=== PATIENT | female | born 1995 | race Two or more races ===

== ENCOUNTER 2016-06-09 12:10 | Emergency (ER) | payer OTHER ==
[~2016-06-09] VITALS: Ht 165.1 cm; Wt 83.9 kg
[2016-06-09 12:20] VITALS: BP 109/77
[2016-06-09] MEDS ORDERED: NKM (12:23)
[2016-06-09] MEDS ORDERED: Ketorolac 60mg Inj IM ONE (12:45)
[2016-06-09] MEDS ORDERED: Dexamethasone 4mg/ml vial IM ONE (12:45)
[2016-06-09 14:11] LABS: BASOPHILS % (AUTO) 0.9 % (0.0-2.0); EOSINOPHILS % (AUTO) 1.2 % (0.0-3.0); LYMPHOCYTES % (AUTO) 32.6 % (20.0-45.0); MEAN CORPUSCULAR HEMOGLOBIN 29.8 PG (27.0-31.0); MEAN CORPUSCULAR VOLUME 91 FL (80-99); MEAN PLATELET VOLUME 6.1 FL (6.5-10.1); MONOCYTES % (AUTO) 12.3 % (1.0-10.0); PLATELET COUNT 315 K/UL (150-450); RED BLOOD COUNT 4.38 M/UL (4.20-5.40); RED CELL DISTRIBUTION WIDTH 11.9 % (11.6-14.8); WHITE BLOOD COUNT 6.5 K/UL (4.8-10.8)
[2016-06-09 14:19] LABS: ANION GAP 13 (5-15); CALCIUM 9.2 mg/dL (8.6-10.2); CARBON DIOXIDE 26 mEQ/L (20-30); CHLORIDE 101 mEQ/L (98-107); CREATININE 0.6 mg/dL (0.5-0.9); GLOMERULAR FILTRATION RATE > 60 mL/min (>60); HEMOLYSIS 5; POTASSIUM 4.2 mEQ/L (3.4-4.9); SODIUM 140 mEQ/L (135-145)
--- NOTE | 2016-06-09 16:08 | Emergency Room Report ---
History of Present Illness General Chief Complaint: General Complaint Source: Patient Present Illness HPI 21-year-old female presents emergency department complaining of pain and swelling in the left cheek x2 weeks. Patient states she was seen one week ago at [facility] and told she has a cyst and that it would go away with ice packs. Patient presents emergency department because her symptoms have progressed the swelling has become more prominent her pain has become more severe. Patient denies nausea, vomiting, fevers, chills ,patient states she has difficulty opening her mouth completely. pt. denies erythema, fluctuance, FABIAN or visual changes. pt. reports 2/10 left ear pain, and reports inner ear itching. Denies CP, Palpitations, LOC, AMS, dizziness, Changes in Vision, Sensation, paresthesias, or a sudden severe headache. Allergies: Coded Allergies: No Known Allergies (Unverified , 06/09/16) Patient History Past Medical History: see triage record Past Surgical History: none Pertinent Family History: none Last Menstrual Period: 06/06/2016 Now: No Immunizations: UTD Reviewed Nursing Documentation: PMH: Agreed, PSxH: Agreed Nursing Documentation-PMH Past Medical History: No Stated History Review of Systems All Other Systems: negative except mentioned in HPI Physical Exam Vital Signs Date Time Temp Pulse Resp B/P Pulse Ox O2 Delivery O2 Flow Rate FiO2 06/09/16 12:20 98.2 84 16 109/77 100 Room Air Sp02 EP Interpretation: reviewed, normal General Appearance: no apparent distress, alert, GCS 15, non-toxic Head: normocephalic, atraumatic Eyes: bilateral eye PERRL, bilateral eye normal inspection ENT: hearing grossly normal, normal pharynx, no angioedema, normal voice, TMs + canals normal, other - left lower jaw swelling, induration palpated, no fluctuance, no stones palpated. no erythema. Neck: full range of motion, supple/symm/no masses Respiratory: lungs clear, normal breath sounds, speaking full sentences Cardiovascular #1: regular rate, rhythm, no edema Musculoskeletal: back normal, gait/station normal, normal range of motion, non- tender, swelling - left lower jaw swelling, induration palpated, no fluctuance, no stones palpated. Neurologic: alert, oriented x3, responsive, motor strength/tone normal, sensory intact, speech normal Psychiatric: judgement/insight normal, memory normal, mood/affect normal, no suicidal/homicidal ideation Skin: normal color, no rash, warm/dry, well hydrated Lymphatic: other - difficult to assess subparotid nodes. Medical Decision Making PA Attestation Dr. Sterling is my supervising Physician whom patient management has been discussed with. Diagnostic Impression: Primary Impression: Mandibular mass Additional Impression: Mandibular swelling ER Course 21-year-old female presents emergency department complaining of pain and swelling in the left cheek x2 weeks. Patient states she was seen one week ago at [facility] and told she has a cyst and that it would go away with ice packs. Patient presents emergency department because her symptoms have progressed the swelling has become more prominent her pain has become more severe. Ddx considered but are not limited to abscess, parotid stone, LAD, malignancy. Vital signs: are WNL, pt. is afebrile H&PE are most consistent with mass of the jaw, will r/o malignancy/abscess, no fluctuance palpated, no erythema ORDERS: -CT Facial bones and Neck with contrast: mandibular cyst per preliminary read by Dr. Rust -Radiologist. ED INTERVENTIONS: -8mg Decadron I do not suspect an emergent condition at this time. with current presentation pt. is stable for close outpatient follow up. DISCHARGE: At this time pt. is stable for d/c to home. Will provide printed patient care instructions, and any necessary prescriptions. Care plan and follow up instructions have been discussed with the patient prior to discharge. Last Vital Signs Date Time Temp Pulse Resp B/P Pulse Ox O2 Delivery O2 Flow Rate FiO2 06/09/16 12:20 98.2 84 16 109/77 100 Room Air Disposition: HOME, SELF-CARE Condition: Stable Scripts Ibuprofen* (MOTRIN*) 600 Mg Tablet 600 MG ORAL THREE TIMES A DAY, #30 TAB 0 Refills Prov: Ruby Khalil P.A. 06/09/16 Hydrocodone Bit/Acetaminophen 5-325* (NORCO 5-325*) 1 Each Tablet 1 TAB ORAL Q6HR Y for For Pain, #15 TAB 0 Refills Prov: Ruby Khalil P.A. 06/09/16 Referrals: [facility]ERR[facility] (PCP) Patient Instructions: Medical Screening Exam Additional Instructions: Take medications as directed. Follow up with maxillofacial specialist in 3-5 days or [employer] Return sooner to ED if new symptoms occur, or current symptoms become worse. Do not drink alcohol, drive, or operate heavy machinery while taking [place] as this may cause drowsiness. - Please note that this Emergency Department Report was dictated using [employer] laptop technician technology software, occasionally this can lead to erroneous entry secondary to interpretation by the dictation equipment. Ruby Khalil Jun 09, 2016 16:08
[2016-06-09] MEDS ORDERED: NORCO 5-325 TA1 EACH ORAL (16:09)
[2016-06-09] MEDS ORDERED: IBUPROFEN600 MG ORAL (16:09)
--- NOTE | 2016-06-09 16:12 | Diagnostic Imaging Report ---
Indications: Left cheek and neck swelling Technique: Spiral acquisitions obtained through the brain. Angled axial and coronal 5 x 5 mm slices were reconstructed. Total dose length product 677 mGycm. CTDI vol(s) 8, 48, 19 mGy Comparison: None Findings: There is a large cystic lesion in the left side of the face. This appears to be centered in the ramus and coronoid process of the mandible, and largely replaces the left mandibular neck, ramus, and coronoid process. It demonstrates peripheral calcification which is probably residual mandibular bone. The central contents are homogeneous, and demonstrates fluid attenuation. This measures 5 cm AP by 3.5 cm transverse by 6.5 cm craniocaudad. It demonstrates sharp margins, and there is a sharp interface with be normal mandibular angle. It is deep to the masseter muscle. There is absence of a portion of the roots of the second mandibular molar, and the lesion could originate from this. No definite fracture demonstrated. The mandibular head appears normal, and articulates normally with the glenoid fossa There are numerous dental caries, predominantly involving the maxillary molars. There is evidence of a few dental extractions, as well as fairly extensive dental amalgam. No other evidence of cervical mass or adenopathy. The thyroid is unremarkable. The parapharyngeal spaces are clear and symmetric there is somewhat abundant prevascular space soft tissue which likely represents residual thymic tissue. The included lung apices are clear. The parapharyngeal spaces are clear and symmetric. There is left maxillary sinus disease. The nasopharynx, oropharynx, hypopharynx, and larynx are unremarkable. Impression: 5 x 3.5 x 6.5 cm expansile cystic lesion of the left ramus of the mandible, completely replacing the ramus and coronoid process, sparing only the left mandibular condyle. No definite evidence of pathologic fracture, however. Differential considerations include ameloblastoma, odontogenic keratocyst, dentigerous cyst, among other possibilities Evidence of dental disease, as described Findings discussed by phone with Ruby in the emergency room at the time of interpretation The CT scanner at [facility] is accredited by the [employer] and the scans are performed using protocols designed to limit radiation exposure to as low as reasonably achievable to attain images of sufficient resolution adequate for diagnostic evaluation.
[2016-06-09 16:19] VITALS: BP 101/75
[2016-06-09 16:23] VITALS: BP 101/75
== END 2016-06-09 16:30 | disposition home or self-care (01) ==
LOC: EMR 12:35
DX: R22.0 Localized swelling, mass and lump, head (principal); R51 Headache
CPT/HCPCS: 36415; 70491; 80048; 85025; 96372; 99284; J1100; Q9967